=== PATIENT | female | born 1975 | race Caucasian/White ===

== ENCOUNTER 2020-02-19 15:32 | Emergency (ER) | payer SELFPAY ==
[~2020-02-19] VITALS: Ht 157.5 cm; Wt 199.6 kg
[2020-02-19 16:04] VITALS: Ht 157.5 cm; Wt 199.6 kg
[2020-02-19 17:08] VITALS: BP 128/74
== END 2020-02-19 17:08 | disposition home or self-care (01) ==
LOC: ED 15:32
DX: G51.0 Bell's palsy (principal); I10 Essential (primary) hypertension; E66.9 Obesity, unspecified
CPT/HCPCS: J7512